=== PATIENT | female | born 1980 | race Caucasian/White ===

== ENCOUNTER 2018-03-30 13:17 | Emergency (ER) | payer OTHER ==
[2018-03-30 13:49] VITALS: BP 141/88
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
== END 2018-03-30 14:41 | disposition home or self-care (01) ==
LOC: UCCORT 13:17
DX: S13.4XXA Sprain of ligaments of cervical spine, initial encounter (principal); V44.5XXA Car driver injured in collision with heavy transport vehicle or bus in traffic accident, initial encounter; Y93.89 Activity, other specified; Y92.9 Unspecified place or not applicable
CPT/HCPCS: 72050; 99202; G0463

== ENCOUNTER 2018-08-05 13:58 | Emergency (ER) | payer OTHER ==
--- NOTE | 2018-08-05 15:16 | UC ---
Lower Extremity/Ankle HPI - HPI Summary HPI Summary: 38 yo female presents with right foot pain. She tells me that 2 days ago she was walking and noticed she had pain to the top of her foot. This has persisted into today. She is able to ambulate without assistance or limp. Denies injury. She has not taken anything OTC for her discomfort. - History of Current Complaint Stated Complaint: RIGHT FOOT INJURY Time Seen by Provider: 08/05/18 15:12 Hx Obtained From: Patient Hx Last Menstrual Period: 03/30/18 Severity Initially: Severe Severity Currently: Severe Pain Intensity: 8 Pain Scale Used: 0-10 Numeric Aggravating Factor(s): Standing, Ambulation Alleviating Factor(s): Rest Able to Bear Weight: Yes - Allergies/Home Medications Allergies/Adverse Reactions: Allergies Allergy/AdvReac Type Severity Reaction Status Date / Time No Known Allergies Allergy Verified 08/05/18 15:18 Home Medications: Home Medications Escitalopram Oxalate [Lexapro] 20 mg PO DAILY 08/05/18 [History Confirmed ] Venlafaxine HCl [Venlafaxine HCl ER] 75 mg PO DAILY 08/05/18 [History Confirmed 08/05/18] PMH/Surg Hx/FS Hx/Imm Hx Psychological History: Anxiety, Depression - Surgical History Surgical History: Yes Surgery Procedure, Year, and Place: [place]. Uterine inversion/laparotomy - Family History Known Family History: Negative: Diabetes - Social History Occupation: Employed Full-time Lives: With Family Alcohol Use: Occasionally Substance Use Type: None Smoking Status (MU): Never Smoked Tobacco Review of Systems Constitutional: Negative Skin: Negative Respiratory: Negative Cardiovascular: Negative Neurovascular: Negative Musculoskeletal: Other: - Right foot pain Neurological: Negative Psychological: Negative All Other Systems Reviewed And Are Negative: Yes Physical Exam - Summary Physical Exam Summary: GENERAL: NAD. WDWN. No pain distress. SKIN: No rashes, sores, lesions, or open wounds. CHEST: No accessory muscle use. Breathing comfortably and in no distress. CV: Pulses intact PT and DP. Cap refill <2seconds MSK: RIGHT FOOT: TTP over midfoot and MTs 1-4. FROM without pain. Strength 5/5. No edema or obvious bony deformities. NEURO: Alert. Sensations intact and symmetric B/L LEs PSYCH: Age appropriate behavior. Triage Information Reviewed: Yes Vital Signs: Vital Signs: Temp Pulse Resp BP Pulse Ox 98.7 F 80 18 113/59 99 08/05/18 15:13 08/05/18 15:13 08/05/18 15:13 08/05/18 15:13 08/05/18 15:13 Vital Signs Reviewed: Yes Lower Extremity Course/Dx - Course Course Of Treatment: XR: IMPRESSION: #. 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 Suspect overuse injury/pain. Pt was provided with a post-op shoe and advised to RICE and take ibuprofen. F/u with Ortho if her symptoms persist. - Differential Dx/Diagnosis Provider Diagnoses: Right foot pain Discharge - Sign-Out/Discharge Documenting (check all that apply): Patient Departure All imaging exams completed and their final reports reviewed: Yes - Discharge Plan Condition: Stable Disposition: HOME Patient Education Materials: Metatarsalgia (DC) Referrals: Dorys Perkins [Primary Care Provider] - Steve Aguila MD [Medical Doctor] - If Needed Additional Instructions: If you develop a fever, shortness of breath, chest pain, new or worsening symptoms - please call your PCP or go to the ED. 1) Use the post-op shoe for pain relief and comfort 2) May take 600mg ibuprofen every 6-8 hours as needed for pain 3) If your symptoms worsen or do not improve - please follow up with your PCP or Orthopedics at the number below - Billing Disposition and Condition Condition: STABLE Disposition: Home
[2018-08-05 15:18] VITALS: BP 113/59
--- NOTE | 2018-08-05 15:47 | RAD ---
Indication: 2 days RIGHT mid foot pain without known injury. Burning pain with weightbearing. Comparison: No relevant prior exams available on the [facility] PACS for comparison. Technique: AP, lateral, and oblique views RIGHT foot. Report: Mild hallux valgus with 25 degrees apex medial angulation at the first metatarsal phalangeal joint. Mild joint space narrowing at the first metatarsal phalangeal joint. The remaining articulations are unremarkable. Negative for fracture or findings of stress reaction. Unremarkable soft tissue contours. IMPRESSION: #. 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
== END 2018-08-05 16:04 | disposition home or self-care (01) ==
LOC: UCCORT 13:58
DX: M79.671 Pain in right foot (principal)
CPT/HCPCS: 99212; G0463